=== PATIENT | female | born 1960 | race Caucasian/White ===

== ENCOUNTER → 2018-08-30 | Day surgery (SDC) | payer BC ==
[~2018-08-30] MED LIST: B-121000 MCG PO; CALCIUM PO; CALCIUM600 M1 PO; EFFEXOR XR150 MG PO; FENTANYL CITRATE/PF 100MCG/2 ML INJ ONE; GLUCAGON FOR INJ 1 MG VIAL ONE; HYOSCYAMINE 0.125 MG TAB ONE; LISINOPRIL5 MG PO; MIDAZOLAM HCL 2 MG/2 ML VIAL ONE; MODAFINIL100 MG PO; MULTIVITAMIN PO; PANTOPRAZOLE SO40 MG PO; PREMARIN0.625 MG PO; PROPOFOL IV EMULSION 10 MG/ML 50 ML VIAL ONE; VITAMIN B COMP1 EAC1 PO; Z.0.PRILOSEC40 MG PO
--- OUTSIDE RECORDS SUMMARY | 2018-08-30 07:37 | XMS REPORT ---
Author Author [facility] Address Unknown Phone Unavailable Care Team Providers Care Vp [employer] Name Role Phone Unavailable Unavailable Problems This patient has no known problems. Allergies, Adverse Reactions, Alerts This patient has no known allergies or adverse reactions. Medications This patient has no known medications. Results Test Description Test Time Test Comments Text Results Atomic Results Result Comments SCR MAMM BILATERAL MEGHA CAD DIGITAL 2018-05-24 09:06:53 - SCR MAMM BILATERAL MEGHA CAD DIGITALBILATERAL DIGITAL SCREENING MAMMOGRAM 3D/2D WITH CAD: 05/22/2018CLINICAL: Asymptomatic. Digital breast tomosynthesis was performed in addition to routine CC and MLO views. Current mammographic images were evaluated by either a [employer] M-Vu or a [employer] ImageChecker CAD (computer aided detection system). Comparison is made to exams dated 05/19/2017 mammogram, 2016 mammogram, and 05/08/2015 mammogram - [facility]. There are scattered fibroglandular tissues in both breasts. There are benign calcifications in both breasts. No suspicious mass, architectural distortion, malignant type calcification, or lymph node abnormality detected. Breast architecture is stable compared to prior exams.IMPRESSION: BENIGNThere is no mammographic evidence of malignancy. Resume annual screening mammography in one year. Zenaida roman/penjesus:05/24/2018 09:06:53 Decontaminator: Holly CERVANTES, [facility] sent: BIRADS 1-2 Normal Mammogram BI-RADS: 2 Benign
--- OUTSIDE RECORDS SUMMARY | 2018-08-30 07:37 | XMS REPORT | Summary of Care ---
Author Author [facility] Organization [facility] Address Unknown Phone Unavailable Encounter TRICE Patel(LUMA) [id number] Date(s): 11/03/16 - 11/03/16 [facility] [address] [place] [address]- Discharge Disposition: Home or Self Care Attending Physician: Amparo Martínez MD Referring Physician: Amparo Martínez MD Vital Signs Most recent to 1 oldest [Reference Range]: Height 167.64 cm (11/02/16 8:32 AM) Blood Pressure 130/86 mmHg [90-140/60-90 mmHg] (11/03/16 7:15 AM) Respiratory Rate 18 BRMIN [14-20 BRMIN] (11/03/16 7:15 AM) Weight 93.182 kg (11/02/16 8:32 AM) Body Mass Index 33.16 m2 (11/02/16 8:32 AM) Problem List Condition Effective Dates Status Health Status Informant Bowel Resolved incontinence(Confirm ed) Apnea, Resolved sleep(Confirmed) Allergies, Adverse Reactions, Alerts Substance Reaction Severity Status hydrocodone Active Vicodin Active Medications modafinil 100 mg oral tablet 100 mg=1 tab, PO, QAM, # 30 tab, 0 Refill(s) Start Date: 11/03/16 Status: Ordered Protonix 40 mg oral enteric coated tablet 40 mg=1 tab, PO, Daily, 0 Refill(s) Start Date: 11/02/16 Status: Ordered Results No data available for this section Immunizations No data available for this section Procedures Procedure Date Related Diagnosis Body Site Abdominal hysterectomy Abdominoplasty Carpal tunnel release Hammer toe operation Liposuction Open operations on contents of bladder Operation Social History Social History Type Response Alcohol Past Smoking Status Never smoker; Exposure to Tobacco Smoke None; Cigarette Smoking Last 365 Days No; Reg Smoking Cessation Counseling No Assessment and Plan No data available for this section
--- OUTSIDE RECORDS SUMMARY | 2018-08-30 07:37 | XMS REPORT | Continuity of Care Document ---
Author Author [facility] Organization [facility] Address Unknown Phone Unavailable Care Team Providers Care Mechanical Reliability Engineer Name Role Phone [facility] Unavailable Unavailable Problems Problem Status Onset Date Classification Date Reported Comments Source UNK Active 10/15/2016 [facility] Bowel incontinence Resolved Problem 11/06/2016 [facility] Apnea, sleep Resolved Problem 11/06/2016 [facility] Medications Medication Details Route Status Patient Instructions Ordering Provider Order Date Source modafinil 100 mg oral tablet 100 mg=1 tab, PO, QAM, # 30 tab, 0 Refill(s) Active 11/03/2016 [facility] pantoprazole 40 MG Enteric Coated Tablet [Protonix] 40 mg=1 tab, PO, Daily, 0 Refill(s) Active 11/02/2016 [facility] Allergies, Adverse Reactions, Alerts Substance Category Reaction Severity Reaction type Status Date Reported Comments Source hydrocodone Assertion Drug allergy Active [facility] Vicodin Assertion Drug allergy Active [facility] Immunizations No Data Provided for This Section Results No Data Provided for This Section Pathology Reports No Data Provided for This Section Diagnostic Reports No Data Provided for This Section Consultation Notes No Data Provided for This Section Discharge Summaries No Data Provided for This Section History and Physicals No Data Provided for This Section Vital Signs Vital Sign Value Date Comments Source Respitory Rate 18 11/03/2016 [facility] Systolic (mm Hg) 130 11/03/2016 [facility] Diastolic (mm Hg) 86 11/03/2016 [facility] BMI Calculated 33.16 11/02/2016 [facility] Weight 93.182 11/02/2016 [facility] Height 167.64 cm 11/02/2016 [facility] Encounters Location Location Details Encounter Type Encounter Number Reason For Visit Attending Provider ADM Date DC Date Status Source [facility] Bedded Outpatient [id number] Amparo Martínez 11/03/2016 11/03/2016 [facility] Procedures Procedure Code Date Perfomer Comments Source Abdominal hysterectomy [id number] [facility] Abdominoplasty [id number] [facility] Carpal tunnel release [id number] [facility] Hammer toe operation [id number] [facility] Liposuction 130483949 [facility] Open operations on contents of bladder [id number] [facility] Operation [id number] [facility] Assessment and Plan No Data Provided for This Section Plan of Care No Data Provided for This Section Social History Social History Date Source Social History TypeResponse Alcohol Past Smoking Status Never smoker; Exposure to Tobacco Smoke None; Cigarette Smoking Last 365 Days No; Reg Smoking Cessation Counseling No 11/02/2016 [facility] Family History No Data Provided for This Section Advance Directives No Data Provided for This Section Functional Status No Data Provided for This Section
--- OUTSIDE RECORDS SUMMARY | 2018-08-30 07:37 | XMS REPORT | Clinical Summary ---
Author Author [facility] Address Unknown Phone Unavailable Care Team Providers Care Materials Analyst Name Role Phone Richard Philip MD PCP Allergies Comments Active Allergy Reactions Severity Noted Date Adhesive Tape-Silicones Rash Low 03/17/2017 Vertigo symptoms Tramadol GI High 12/18/2014 Intolerance, Other (See Comments) Also nausea Hydrocodone-Acetaminophen Rash, GI High 10/21/2010 Intolerance, Itching Medications End Date Status Medication Sig Dispensed Refills Start Date Active pantoprazole (PROTONIX) Take 40 mg by 0 40 MG EC tablet mouth 2 (two) times a day. Active CALCIUM CARBONATE Take by mouth 0 (CALCIUM 500 ORAL) 2 (two) times a day. Active b complex vitamins Take 1 0 capsule capsule by mouth daily. Active MV-MN/C/GLUTAMIN/LYSIN/HE Take by mouth 0 RB124 ([place], daily. ASCORBATE SODIUM, ORAL) Active lisinopril 0 (PRINIVIL,ZESTRIL) 5 mg 8 tablet Active ibuprofen-famotidine Take by 0 800-26.6 mg tablet mouth. Active modafinil (PROVIGIL) 200 TK 1 T PO QAM 0 MG tablet 8 Active PREMARIN 0.625 mg tablet TAKE 1 T PO 6 QD 8 Active PREMARIN 0.625 mg tablet TAKE 1 TABLET 30 tablet 11 BY MOUTH 9 EVERY DAY 02/28/2018 Discontinued estrogens, conjugated, Take 1 tablet 30 tablet 6 (PREMARIN) 0.625 MG (0.625 mg 8 tablet total) by mouth daily for 30 days. Active Problems Problem Noted Date Ovarian neoplasm with low malignant potential 04/10/2017 Cancer Staging: Clinical stage from 03/25/2017: FIGO Stage IA (cT1a, cN0, cM0) - Signed by Maci Mackenzie MD on 04/10/2017 Mass of pelvis 03/25/2017 Pelvic mass 03/17/2017 Encounters Care Team Description Date Type Specialty Maci Mackenzie MD 02/28/2018 Refill Gynecologic Oncology Maci Mackenzie MD Neoplasm of uncertain behavior of ovary, unspecified laterality (Primary Dx); Screening for osteoporosis; Ovarian neoplasm with low malignant potential 02/14/2018 Office Visit Gynecologic Oncology Anastasia Palomino RN 02/08/2018 Orders Only Gynecologic Oncology after 08/29/2017 Family History Medical History Relation Name Comments Diabetes Father Breast cancer Maternal Grandmother Stomach cancer Maternal Grandmother Hypertension Mother Relation Name Status Comments Father Maternal Grandmother Mother Social History Date Tobacco Use Types Packs/Day Years Used Never Smoker Smokeless Tobacco: Never Used Alcohol Use Drinks/Week oz/Week Comments No Sex Assigned at Date Recorded Not on file Industry Job Start Date Occupation Not on file Not on file Not on file Travel End Travel History Travel Start No recent travel history available. Last Filed Vital Signs Time Taken Vital Sign Reading 02/14/2018 11:59 AM OUTER DIAMETER TECHNICIAN Blood Pressure 126/82 02/14/2018 11:59 AM OUTER DIAMETER TECHNICIAN Pulse 71 - Temperature - - Respiratory Rate - - Oxygen Saturation - - Inhaled Oxygen - Concentration 02/14/2018 11:59 AM OUTER DIAMETER TECHNICIAN Weight 94.3 kg (208 lb) 02/14/2018 11:59 AM OUTER DIAMETER TECHNICIAN Height 167.6 cm (5' 6") 02/14/2018 11:59 AM OUTER DIAMETER TECHNICIAN Body Mass Index 33.57 Plan of Treatment Care Team Description Date Type Specialty Maci Mackenzie MD [address] [facility] [address] [place], [place] [id number] 02/15/2019 Office Visit Gynecologic Oncology Health Maintenance Due Date Last Done Comments COLONOSCOPY SCREENING 06/25/2011 SHINGLES VACCINES (#1) 06/25/2011 INFLUENZA VACCINE 09/07/2018 BREAST CANCER SCREENING 07/05/2020 07/05/2018, 05/20/2017 Procedures Comments Procedure Name Priority Date/Time Associated Diagnosis BONE DENSITY Routine 07/05/2018 MAMMO SCREENING W CAD Routine 07/05/2018 BILATERAL CANCER ANTIGEN 125 Routine 02/09/2018 Neoplasm of uncertain 7:03 AM OUTER DIAMETER TECHNICIAN behavior of ovary, unspecified laterality after 08/29/2017 Results * Mammo Screening w Cad Bilateral (07/05/2018) Narrative Performed At * Bone Density (07/05/2018) Narrative Performed At * Cancer antigen 125 (02/09/2018 7:03 AM OUTER DIAMETER TECHNICIAN) CA 125 13 <35 U/mL [facility] Comment: [facility] This test was performed using ING II the Phase Focus [place] Chemiluminescent method. Values obtained from different assay methods cannot be used interchangeably. CA 125 levels, regardless of value, should not be interpreted as absolute evidence of the presence or absence of disease. Specimen Blood Narrative Performed At FASTING:YES [facility] FASTING: YES Resulting Agency Comment Performing Organization Information: Site ID: [id number] Name: [facility] Address: [address] [place] [id number] Director: Dr. Joaquín Singh Performing Organization Address City/State/Zipcode Phone Number [facility] [address] [place] [address]. [place] [address] II after 08/29/2017 Insurance Type Payer Benefit Subscriber ID Effective Phone Address Plan / Dates Group PPO BCBS BCBS xxxxxxxxxxxx 2016- CHOICE Present PPO/JOSEL[employer] [place] PPO ([place]) [place] [address] Advance Directives Patient has advance care planning documents on file. For more information, antolin singh contact: Dick Jenkins [address] [place] [address]
[2018-08-30 12:55] VITALS: BP 128/77
--- NOTE | 2018-08-30 13:37 | Operative Report ---
DATE OF PROCEDURE: 08/30/2018 SURGEON: Bryan Phililp MD PROCEDURE: EGD with polypectomy and biopsies and a colonoscopy. REFERRING PHYSICIAN: Dr. Richard Philip INDICATION FOR EGD: Heartburn and indigestion. INDICATION FOR COLONOSCOPY: Surveillance colonoscopy, personal history of colon polyps. MEDICATION: The patient was done under MAC, please see anesthesiologist's note. PROCEDURE IN DETAIL: With the patient in left lateral decubitus position, flexible fiberoptic Olympus gastroscope was introduced into the esophagus under direct visualization without any difficulty. There was some patchy erythema noted in distal esophagus. The scope was then advanced with ease into the stomach traversing a small sliding hiatal hernia. Numerous polyps were noted in the body of the stomach and approximately 26 polyps were removed for hot as well as cold snare polypectomy. The mucosa overlying the antrum revealed some patchy intense erythema and low-grade to moderate edema and biopsies were obtained, sent to stain for H pylori. Pylorus was of normal contour and shape and was intubated with ease and the scope was advanced all the way to the second portion of the duodenum. The scope was then withdrawn slowly and biopsies were obtained from the second portion and duodenal bulb to rule out sprue. The scope was then withdrawn back into the stomach and retroflexed mucosa overlying the fundus and cardia appeared to be within normal limits. The scope was then straightened out and was subsequently withdrawn. The patient tolerated the procedure well. IMPRESSION: 1. Distal esophagitis, mild. 2. Small sliding hiatal hernia. 3. Gastritis, biopsied, biopsies sent to stain for H pylori. 4. Gastric polyps, numerous, body, approximately 26 polyps removed for hot and cold snare polypectomy. 5. Rule out sprue. PLAN: Follow up histology. Continue Protonix 40 mg one p.o. a.c. b.i.d. The patient was then turned around after adequate lubrication of the anal canal. A flexible fiberoptic Olympus colonoscope was inserted into the rectum with ease and advanced to the distal sigmoid colon and could not be advanced any further due to sharply angulated and fixed sigmoid colon. The scope was then withdrawn. An attempt to reverse the site with the pediatric colonoscope was also unsuccessful. An EGD scope was then inserted and it was advanced all the way to approximately mid transverse colon. It could not be advanced any further as the scope was looping in the left colon. The scope was then withdrawn slowly whatever was visualized and the mucosa overlying the transverse and descending grossly appeared to be within normal limits. Diverticular disease was noted in the distal descending and the sigmoid colon. The rectum grossly appeared to be within normal limits. The scope was then retroflexed into the distal rectum and small internal hemorrhoids were noted, none of which was actively bleeding. The scope was then straightened out, it was subsequently withdrawn. The patient tolerated the procedure well. IMPRESSION: 1. Colonoscopy with EGD scope to approximately mid transverse colon. Sigmoid colon was sharply angulated and excessively tortuous and we were able to negotiate it only with the EGD scope. 2. Diverticulosis. 3. Internal hemorrhoids, none actively bleeding. PLAN: Initiate high-fiber low-fat diet. Initiate high-fiber supplement. The patient will need an air-contrast barium enema. MD ALISHA Francis/STAR /[id number] cc: Richard Philip
== END | disposition home or self-care (01) ==
LOC: OR 07:29
PROVIDERS: ATTEND Internal Medicine Gastroenterology
DX: K29.60 Other gastritis without bleeding (principal); K31.7 Polyp of stomach and duodenum; K29.80 Duodenitis without bleeding; K20.9 Esophagitis, unspecified; K21.9 Gastro-esophageal reflux disease without esophagitis; K58.9 Irritable bowel syndrome, unspecified; K44.9 Diaphragmatic hernia without obstruction or gangrene; K56.609 Unspecified intestinal obstruction, unspecified as to partial versus complete obstruction; K57.30 Diverticulosis of large intestine without perforation or abscess without bleeding; K64.8 Other hemorrhoids; G47.33 Obstructive sleep apnea (adult) (pediatric); I10 Essential (primary) hypertension; R00.1 Bradycardia, unspecified; Z88.6 Allergy status to analgesic agent; Z91.048 Other nonmedicinal substance allergy status; Z01.810 Encounter for preprocedural cardiovascular examination; Z68.33 Body mass index [BMI] 33.0-33.9, adult; Z80.0 Family history of malignant neoplasm of digestive organs
CPT/HCPCS: 43239; 43251; 45378; 93005; J1610; J2250; J2704; J3010

== ENCOUNTER → 2019-01-02 | Outpatient (CLI) | payer BC ==
[~2019-01-02] MED LIST changes: -FENTANYL CITRATE/PF 100MCG/2 ML INJ ONE; -GLUCAGON FOR INJ 1 MG VIAL ONE; -HYOSCYAMINE 0.125 MG TAB ONE; -MIDAZOLAM HCL 2 MG/2 ML VIAL ONE; -PROPOFOL IV EMULSION 10 MG/ML 50 ML VIAL ONE
--- NOTE | 2019-01-02 13:12 | Diagnostic Imaging Report ---
EXAM: FL BARIUM ENEMA AIR AND BARIUM DOUBLE CONTRAST INDICATION: Diverticulosis with history of diverticulitis, incomplete colonoscopy COMPARISON: None available. FINDINGS: CARBON SEQUESTRATION PLANT MANAGER: The bowel gas pattern is non-obstructive. No free air. Phleboliths in the pelvis. RECTUM: Mucosa: Unremarkable. Distensibility: Normal. SIGMOID COLON: No evidence of hiatal hernia. SIGMOID, TRANSVERSE, AND DESCENDING COLON: Redundant sigmoid colon with extensive diverticulosis. No significant luminal narrowing. Mild diverticulosis of the distal descending colon. Normal appearance of the transverse and proximal descending colon. ASCENDING COLON, CECUM AND APPENDIX: Normally distensible and demonstrates normal contours and mucosal pattern. Appendix fills with contrast and appears unremarkable. Fluoroscopy Time: 1 minute Radiation dose: 54.9 mGy IMPRESSION: Redundant sigmoid colon with sigmoid and distal descending colon diverticulosis. No significant luminal narrowing or evidence of mucosal mass lesion or fistulous tract. Signed by: Rusty Beck MD on 01/02/2019 1:09 PM
== END ==
LOC: DX 11:04
PROVIDERS: ATTEND Internal Medicine Gastroenterology
DX: K57.90 Diverticulosis of intestine, part unspecified, without perforation or abscess without bleeding (principal)
CPT/HCPCS: 74280